=== PATIENT | male | born 1980 | race Hispanic/Latino ===

== ENCOUNTER 2020-08-24 06:20 | Inpatient (IN) | payer OTHER ==
[2020-08-19 15:49] LABS: BASOPHILS % 0.2 % (0.0-1.0); EOSINOPHILS % 0.4 % (0.0-6.0); HEMOGLOBIN 16.2 g/dL (14.0-18.0); LYMPHOCYTES # (AUTO) 2.2 (1.0-3.2); MEAN CORPUSCULAR HEMOGLOBIN 29.6 pg (28-32); MEAN CORPUSCULAR HGB CONC 33.1 g/dL (31-35); MEAN CORPUSCULAR VOLUME 89.4 fL (81-99); MONOCYTES # (AUTO) 0.9 (0.2-0.8); NEUTROPHILS # (AUTO) 7.6 (2.1-6.9); NEUTROPHILS % 70.8 % (38.7-80.0); PLATELET COUNT 347 x10e3/uL (140-360); RED BLOOD COUNT 5.48 x10e6/uL (4.3-5.7); RED CELL DISTRIBUTION WIDTH 13.9 % (11.7-14.4)
[2020-08-19 16:13] LABS: ANION GAP 13.3 mmol/L (8-16); BLOOD UREA NITROGEN 12 mg/dL (7-26); BUN/CREATININE RATIO 11 (6-25); CARBON DIOXIDE 24 mmol/L (22-29); CHLORIDE 107 mmol/L (98-107); CREATININE, SERUM 1.11 mg/dL (0.72-1.25); EST GLOMERULAR FILTRATION RATE > 60 ML/MIN (60-); GLUCOSE 128 mg/dL (74-118); SODIUM 139 mmol/L (136-145)
[2020-08-19 16:19] LABS: POTASSIUM 5.3 mmol/L (3.5-5.1)
[~2020-08-24] VITALS: Ht 172.7 cm; Wt 88.6 kg
[~2020-08-24 06:20] MED LIST: ATORVASTATIN CA20 MG PO; FENOFIBRATE145 MG PO; LOSARTAN POTASS25 MG PO; METFORMIN HCL500 MG PO; METOPROLOL SUCC25 MG PO; OMEPRAZOLE40 MG PO
[2020-08-24] MEDS ORDERED: HYDROMORPHONE 1MG/1ML INJ IV PRN (11:45)
[2020-08-24] MEDS ORDERED: METOPROLOL SUCCINATE 25 MG TAB XL PO PRN (11:45)
[2020-08-24] MEDS ORDERED: ONDANSETRON HCL INJ 2MG/ML 2ML 2 MG/ML VIAL IV PRN (11:45)
[2020-08-24] MEDS: INSULIN REGULAR, HUMAN 100 UNIT/1 ML 3ML VIAL SQ SCH ×2 (12:00→18:00)
--- NOTE | 2020-08-24 12:39 | Operative Report ---
DATE OF PROCEDURE: 08/24/2020 SURGEON: Valdemar Pichardo MD PREOPERATIVE DIAGNOSIS: Large incarcerated ventral hernia. POSTOPERATIVE DIAGNOSIS: Large incarcerated ventral hernia and umbilical hernia. OPERATION PERFORMED: Repair of large incarcerated ventral and umbilical hernias with mesh. FINANCIAL COST ANALYST: Williams CHACON. ANESTHESIA: General. COMPLICATIONS: None. ESTIMATED BLOOD LOSS: Minimal. DESCRIPTION OF PROCEDURE: With the patient lying in bed in the supine position under good general anesthesia, the abdomen was prepped with Betadine solution and draped in the usual manner. A transverse incision was made in the epigastric area, carried down into the subcutaneous tissue and immediately a large hernia sac was encountered. This was slowly and carefully from the surrounding structures and the fascia was then dissected all the way around. The hernia sac was then opened and a large amount of omentum was found within it. The excess of the hernia sac and the incarcerated omentum were then resected and ligated with 2-0 Vicryl. After this was done, we accessed intra-abdominal cavity through the hernia sac and it quickly became evident that the patient had weakness of the most of the upper abdomen above where the epigastric defect was. There was also an umbilical hernia with a large amount of fat contained within it, which similarly had to be resected. The umbilicus was then from the midline fascia and the hernia sac was resected and all the excess were sent for pathological examination. The fascia was then cleared all the way around both defects and widely up towards the subxiphoid region and once this was done widely, the midline fascia was then closed vertically with interrupted sutures of 0 Ethibond, closing both defects primarily. There was no significant tension. This was further oversewn with a #1 Vicryl suture. After this was done, Ultrapro mesh was used to cover the entire epigastric area below the umbilicus and this was then tacked all the way around using interrupted sutures of 0 Ethibond and 0 Vicryl. This gave the satisfactory repair without any tension. Some of the excess skin was then removed. After this was done, the fascia was then infiltrated with 0.25% Marcaine and 1% lidocaine mixed in equal parts. The subcutaneous tissue was reapproximated using interrupted sutures of 2-0 Vicryl and the skin was closed with clips. A dressing was applied. The sponge, lap, and needle count was correct. The patient tolerated the procedure well and returned to the recovery room in stable condition. MD ALISHA Davenport/LINDSAY /[id number]
[2020-08-24] MEDS ORDERED: CEFAZOLIN SOD 1 GM VIAL ONE (13:10)
[2020-08-24] MEDS ORDERED: KETOROLAC TROMETHAMINE 30 MG/ML VIAL ONE (13:10)
[2020-08-24] MEDS ORDERED: GLYCOPYRROLATE INJ 0.2 MG/ML VIAL ONE (13:10)
[2020-08-24] MEDS ORDERED: ONDANSETRON HCL INJ 2MG/ML 2ML 2 MG/ML VIAL ONE (13:10)
[2020-08-24] MEDS ORDERED: LIDOCAINE HCL 2% LOCAL INJ 5 ML SDV VIAL INJ ONE (13:10)
[2020-08-24] MEDS ORDERED: PROPOFOL IV EMULSION 10 MG/ML 20 ML VIAL ONE (13:10)
[2020-08-24] MEDS ORDERED: ROCURONIUM BROMIDE 10 MG/ML 5ML VIAL IV ONE (13:10)
[2020-08-24] MEDS ORDERED: SEVOFLURANE INHAL SOLN 250 ML PEN BTL ONE (13:10)
[2020-08-24] MEDS ORDERED: DEXAMETHASONE SOD PHOS INJ 4 MG/ML VIAL ONE (13:10)
[2020-08-24] MEDS ORDERED: LIDOCAINE HCL 2% JELLY 5 ML TUBE ONE (13:10)
[2020-08-24] MEDS ORDERED: NEOSTIGMINE 1 MG/ML 10ML VIAL ONE (13:10)
[2020-08-24] MEDS: SODIUM CHLORIDE 0.9% 1000ML 1,000 ML IV SCH ×2 (14:23→23:45)
[2020-08-24] MEDS: PANTOPRAZOLE 40 MG 10ML VIAL IV SCH (14:23)
[2020-08-24] MEDS ORDERED: MIDAZOLAM HCL 2 MG/2 ML VIAL ONE (14:29)
[2020-08-24] MEDS ORDERED: FENTANYL CITRATE/PF 100MCG/2 ML INJ ONE (14:29)
[2020-08-24 14:32] VITALS: BP 136/74
[2020-08-24 15:00] VITALS: BP 136/74
[2020-08-24 16:13] VITALS: BP 130/70
[2020-08-24] MEDS: HYDROCODONE/APAP 7.5MG-325MG 1 EA TAB PO PRN ×2 (17:24→21:30)
[2020-08-24] MEDS: CEFAZOLIN SOD 1 GM/NS 50ML 50 ML IV SCH (17:28)
[2020-08-24 20:00] VITALS: BP_SYST 130; BP_SYST 143; BP_DIAS 70; BP_DIAS 91
[2020-08-25] MEDS: CEFAZOLIN SOD 1 GM/NS 50ML 50 ML IV SCH (00:25)
[2020-08-25] MEDS: HYDROCODONE/APAP 7.5MG-325MG 1 EA TAB PO PRN ×3 (01:27→12:05)
[2020-08-25 04:00] VITALS: BP 129/82
[2020-08-25 05:00] LABS: BASOPHILS % 0.1 % (0.0-1.0); EOSINOPHILS % 0.1 % (0.0-6.0); HEMATOCRIT 40.8 % (38.2-49.6); HEMOGLOBIN 13.7 g/dL (14.0-18.0); LYMPHOCYTES # (AUTO) 1.3 (1.0-3.2); LYMPHOCYTES % 9.1 % (18.0-39.1); MEAN CORPUSCULAR HEMOGLOBIN 30.2 pg (28-32); MEAN CORPUSCULAR HGB CONC 33.6 g/dL (31-35); MEAN CORPUSCULAR VOLUME 90.1 fL (81-99); MONOCYTES # (AUTO) 1.1 (0.2-0.8); MONOCYTES % 7.5 % (4.4-11.3); NEUTROPHILS # (AUTO) 12.1 (2.1-6.9); NEUTROPHILS % 82.7 % (38.7-80.0); PLATELET COUNT 286 x10e3/uL (140-360); RED BLOOD COUNT 4.53 x10e6/uL (4.3-5.7); RED CELL DISTRIBUTION WIDTH 14.1 % (11.7-14.4)
[2020-08-25 05:18] LABS: ANION GAP 13.8 mmol/L (8-16); BLOOD UREA NITROGEN 5 mg/dL (7-26); BUN/CREATININE RATIO 6 (6-25); CALCIUM 8.7 mg/dL (8.4-10.2); CARBON DIOXIDE 21 mmol/L (22-29); CHLORIDE 109 mmol/L (98-107); CREATININE, SERUM 0.82 mg/dL (0.72-1.25); EST GLOMERULAR FILTRATION RATE > 60 ML/MIN (60-); GLUCOSE 139 mg/dL (74-118); POTASSIUM 3.8 mmol/L (3.5-5.1); SODIUM 140 mmol/L (136-145)
[2020-08-25] MEDS: INSULIN REGULAR, HUMAN 100 UNIT/1 ML 3ML VIAL SQ SCH ×3 (05:29→12:00)
[2020-08-25 08:05] VITALS: BP 142/89
[2020-08-25] MEDS ORDERED: LOSARTAN POTASSIUM 25 MG TAB PO SCH (09:00)
[2020-08-25 09:29] VITALS: BP 142/89
[2020-08-25 12:07] VITALS: BP 137/87
[2020-08-25] MEDS: SODIUM CHLORIDE 0.9% 1000ML 1,000 ML IV SCH (12:39)
[2020-08-25] MEDS: PANTOPRAZOLE 40 MG 10ML VIAL IV SCH (13:21)
[2020-08-25] MEDS ORDERED: ONDANSETRON HCL 4 MG ORAL DISINTEGRATING TAB PO PRN (14:45)
[2020-08-25] MEDS ORDERED: NORCO 7.5-3251 EACH PO (15:28)
[2020-08-25] MEDS ORDERED: KEFLEX500 MG PO (15:29)
--- NOTE | 2020-08-25 16:06 | NUR ---
Patient discharged home , prescription and discharge instruction given, patient verbalized understanding, he aware about f/up appointment. Dressing is intact with abdominal binder, no distress noted, family here to pick patient,
[2020-08-26] MEDS ORDERED: PANTOPRAZOLE SOD 40 MG TABEC PO SCH (07:30)
== END 2020-08-25 16:00 | disposition home or self-care (01) | DRG 355 ==
LOC: OR 06:20 → PACU V 11:43 → OBSVTOIN 11:43 → INTOOBSV 11:43 → MED/SURG 13:39 → OBSVTOIN 08-25 11:24
PROVIDERS: ADMIT Surgery; ATTEND Surgery
PROC: 0WUF0JZ Supplement Abdominal Wall with Synthetic Substitute, Open Approach (ICD-10-PCS; principal; 2020-08-24 08:30)
DX: K43.6 Other and unspecified ventral hernia with obstruction, without gangrene (principal); Z11.59 Encounter for screening for other viral diseases; K42.0 Umbilical hernia with obstruction, without gangrene; I10 Essential (primary) hypertension; E11.9 Type 2 diabetes mellitus without complications; Z79.84 Long term (current) use of oral hypoglycemic drugs
CPT/HCPCS: 36415; 80048; 82948; 84132; 85025; 88302; 93005; 96361; C1781; G0378; J0690; J1100; J1170; J1885; J2001; J2250; J2405; J2710; J3010; J7030